=== PATIENT | female | born 1995 | race Caucasian/White ===

== ENCOUNTER 2024-03-05 19:08 | Observation (INO) | payer MEDICAID, SELFPAY ==
[2024-03-05 19:08] VITALS: BMI 21.4
[2024-03-05 19:46] VITALS: BP 115/71; PULSE 87; RESP 16; TEMP 36.8; O2SAT 100
[2024-03-05 19:46] LABS: Add Urine Microscopic? YES; Appearance Urine Cloudy (Clear); Bacteria Urine 2+ /hpf; Bilirubin Urine Negative (Negative); Blood Urine Negative (Negative); Color Urine Yellow (Yellow); Glucose Urine UA Negative (Negative); Ketones Urine 4+ mg/dL (Negative); Leukocyte Esterase Ur Negative LEU/UL (Negative); Nitrate Urine Negative (Negative); Protein Urine 1+ mg/dL (Negative); RBC Urine 0-2 /hpf (0-2); Specific Grav Ur 1.027 (1.001-1.035); Squamous Epithelial Cell Urine Moderate /hpf (Few); WBC Urine 0-5 /hpf (0-3); pH Urine 5.5 (5.0-9.0)
--- NOTE | 2024-03-05 20:00 | PC.NURSE ---
Spoke with Dr Giron over the phone. Reported patient came in with a chief complaint of nausea and vomiting for the last 3 days, that has been worse today. Reported patient UA results. New orders for 1L bolus of D5LR, 4mg Zofran, CBC, and CMP. OK to dc when patient has improved.
[2024-03-05] MEDS: DEXTROSE 5%/LACTATED RINGERS 1,000 ML 999 ML IV CONT (20:30)
[2024-03-05] MEDS: ONDANSETRON INJ 4 MG/2 ML VIAL IV PUSH (20:35)
[2024-03-05 20:51] LABS: Basophils Percent Auto 0.3 % (0.2-1.2); Eosinophils Percent Auto 0.2 % (0-4.4); Hematocrit 35.7 % (37.0-47.0); Hemoglobin 12.7 g/dL (12.0-15.0); Immature Granulocyte Absolute 0.03 K/mm3 (0.00-0.031); Immature Granulocyte Percent A 0.3 % (0-0.5); Lymphocytes Absolute Auto 1.32 K/mm3 (0.9-3.2); Lymphocytes Percent Auto 15.3 % (18.3-44.2); Mean Corpuscular HGB Conc 35.6 g/dl (32-36); Mean Corpuscular Hemoglobin 30.9 pg (26-34); Mean Corpuscular Volume 86.9 fl (80-100); Monocytes Absolute Auto 0.3 K/mm3 (0.1-0.6); Monocytes Percent Auto 3.9 % (2.6-8.5); Neutrophils Absolute Auto 6.9 K/mm3 (1.3-6.7); Platelet Count Result 241 k/mm3 (150-375); Red Blood Count 4.11 M/mm3 (4.2-5.4); Red Cell Distribution Width 12.3 % (11.5-14.5); White Blood Count 8.7 K/mm3 (4.5-10.0)
[2024-03-05 20:54] LABS: Alanine Aminotransferase 12 U/L (6-35); Albumin Level 4.8 g/dL (3.5-5.1); Alkaline Phosphatase 86 U/L (38-126); Anion Gap 16 mmol/L (4-12); Aspartate Amino Transferase 25 U/L (14-36); Bilirubin,Total 2.1 mg/dL (0.2-1.3); Blood Urea Nitrogen 8 mg/dL (7-17); Calcium 9.3 mg/dL (8.4-10.2); Carbon Dioxide 17 mmol/L (22-30); Chloride 102 mmol/L (98-107); Estimated Glomerular Filt Rate > 60; Glucose 73 mg/dL (65-110); Sodium 135 mmol/L (137-145)
--- NOTE | 2024-03-05 21:23 | OBADM ---
This patient, Mary Carmen Simpson, admitted to the OB room [facility] for observation. Patient/family oriented to hospital policies and general routines including ID bracelet, bed and alarms, visiting hours, pain management, procedures, bathroom and other care routines, personal items, smoking policy, room service/diet, and visiting hours. Patient/Family are encouraged to report perceived risks to care and to ask questions if they do not understand what they are told or what they should do.
--- NOTE | 2024-03-26 21:41 | PM.OBTRLD ---
OB - Triage/Final Diagnosis Visit Information Comments/Additional reasons for admission: I have assessed the risk for this patient, Mary Carmen Simpson, and determined that she would benefit from observation care. Evaluation Laboratory results: Laboratory Tests 03/05/24 03/05/24 19:22 20:29 WBC 8.7 RBC 4.11 L Hgb 12.7 Hct 35.7 L MCV 86.9 MCH 30.9 MCHC 35.6 RDW 12.3 Plt Count 241 MPV 10.0 Immature Gran % (Auto) 0.3 Neut % (Auto) 80.0 H Lymph % (Auto) 15.3 L [place] % (Auto) 3.9 Eos % (Auto) 0.2 Baso % (Auto) 0.3 Lymph # (Auto) 1.32 [place] # (Auto) 0.3 Eos # (Auto) 0.0 Baso # (Auto) 0.0 Abs Immat Gran (auto) 0.03 Absolute Neuts (auto) 6.9 H Absolute Nucleated RBC 0.000 Nucleated RBC % 0.0 Sodium 135 L Potassium 4.0 Chloride 102 Carbon Dioxide 17 L Anion Gap 16 H BUN 8 Creatinine 0.50 L Estim Creat Clear Calc Not Reportable Estimated GFR > 60 Glucose 73 Calcium 9.3 Total Bilirubin 2.1 H AST 25 ALT 12 Alkaline Phosphatase 86 Total Protein 9.0 H Albumin 4.8 Urine Color Yellow Urine Appearance Cloudy H Urine pH 5.5 Ur Specific [place] 1.027 Urine Protein 1+ H Urine Glucose (UA) Negative Urine Ketones 4+ H Ur Blood (Man) Negative Urine Nitrate Negative Urine Bilirubin Negative Urine Urobilinogen 1.0 Leukocyte Esterase Rfl Negative Urine RBC 0-2 Urine WBC 0-5 Ur Squamous Epith Cells Moderate Urine Bacteria 2+ H Urine Casts 3-5 Final Diagnosis (1) Nausea and vomiting: Code(s): R11.2 - Nausea with vomiting, unspecified Status: Acute
== END 2024-03-05 21:40 | disposition home or self-care (01) ==
PROVIDERS: Admitting Provider Obstetrics & Gynecology; Visit Provider Obstetrics & Gynecology
DX: O21.9 Vomiting of pregnancy, unspecified (principal); Z3A.00 Weeks of gestation of pregnancy not specified
CPT/HCPCS: 36415; 80053; 81001; 85025; 96374; G0378; G0379; J2405; J7121

== ENCOUNTER 2024-09-24 22:19 | Inpatient (IN) | payer OTHER, SELFPAY ==
--- OUTSIDE RECORDS SUMMARY | 2024-09-24 22:29 | XMS_ITS | Clinical Summary ---
Author Organization [facility] Address [facility] [place] [address] Phone [email or web address] Care Team Providers Care Print Finisher Name Role Phone Unavailable Primary Care Provider Unavailabl e Allergies No known active allergies Medications amphetamine-dext roamphetamine XR (ADDERALL XR) 5 MG 24 hr capsule Take 10 mg by mouth 1 (one) time each day. 2 Active naproxen (Naprosyn) 500 MG tabletIndication s:Chronic migraine without aura without status migrainosus, not intractable Take 1 tablet (500 mg total) by mouth 2 (two) times a day if needed for mild pain, moderate pain or headaches. 60 tablet 2 Active SUMAtriptan (IMITREX) 100 MG tabletIndication s:Migraine without aura and with status migrainosus, not intractable Take 1 tablet (100 mg total) by mouth 1 (one) time if needed for migraine for up to 1 dose. 9 tablet 2 Active Active Problems Problem Noted Date Diagnosed Date Chronic migraine without aur a without status migrainosus, not intractable 08/08/2019 Overview (08/08/2019): Evaluated by neurology in past Migraine and tension type headaches Experiencing migraines about once per month Continue imitrex and flexeril prn Assessment & Plan (04/21/2022 3:15 PM EST): Discussed other treatment options. Pt is finding imitrex to be effective and will continue as needed, but will add naproxen 500mg to take if needed first and if ineffective then can take imitrex as ordered. Advised to take naproxen with food. Referral to PT as well. Encouraged to resume psychotherapy for stress management. Advised to be mindful of good posture when seated at desk. Assessment & Plan (11/21/2020 12:20 PM EDT): Headaches are improving with lifestyle modifications. Continue current treatment regimen. Imitrex refilled. ADHD 06/07/2012 Overview (11/21/2020): Last Assessment & Plan: - Will continue patient on Strattera at current dose that she has been taking at home, 40mg daily - Patient was instructed to follow up again in 2-3 months or to return sooner if any new or concerning side effects/symptoms arise Last Assessment & Plan: - Will continue patient on Strattera at current dose that she has been taking at home, 40mg daily - Patient was instructed to follow up again in 2-3 months or to return sooner if any new or concerning side effects/symptoms arise Assessment & Plan (11/21/2020 12:22 PM EDT): Psychological condition is worsening. Regular aerobic exercise. Referral to psychological counseling. Referral to psychiatry. for treatment recommendations - straterra and adderall not tolerated well in past. Psychological condition will be reassessed at the next regular appointment for annual physical next month. Resolved Problems Problem Noted Date Diagnosed Date Resolved Date Elevated blood pressure read ing without diagnosis of hypertension 08/08/2019 12/19/2020 Corneal abrasion, left 05/12/201611/21 Overview (11/21/2020): Last Assessment & Plan: Resolving Artifical tears Last Assessment & Plan: Resolving Artifical tears Immunizations Name Administration Dates Next Due COVID-19 (Pfizer [place] 12 yrs+) (CVX-208) 021,09/18/2020 Hep B (ENGERIX B RECOMBIVAX) Adol/Ped (CVX-08) 01/17/1996,1995,1995 Family History Medical History Relation Name Comments Diabetes Maternal Grandfather jack Xavier Cancer Maternal Grandmother Yokasta xavier Diabetes Maternal Grandmother Yokasta xavier Relation Name Status Comments Maternal Grandfather jack Xavier Maternal Grandmother Yokasta xavier breast CA Social History Tobacco Use Types Packs/Day Years Used Date Smoking Tobacco: Never Smokeless Tobacco: Never Tobacco Cessation:Counseling Given: Not Answered Alcohol Use Standard Drinks/Week Comments Yes 2 (1 standard drink = 0.6 oz pur e alcohol) 1-2 glasses per week Intimate Partner Violence Answer Date R ecorded Insults You Not on file 09/20/2020 Threatens You Not on file 09/20/2020 Screams at You Not on file 09/20/2020 Physically Hurt Not on file 09/20/2020 Intimate Partner Violence Score Not on file 09/20/2020 Alcohol Use Answer Date Recorded Alcohol Use Status Yes 09/20/2020 Depression Answer Date Recorded PHQ Total Score 0 04/21/2022 Stress Answer Date Recorded Stress in your Life 0 07/15/2020 Dealing with Stress Not on file 07/15/2020 Comments No Sex and Gender Information Value Date Recorded Sex Assigned at Not on file Legal Sex Female 12:27 PM CDT Gender Identity Female 03/20/2019 11:01 AM CDT Sexual Orientation Straight 03/20/2019 11 :01 AM CDT Last Filed Vital Signs Vital Sign Reading Time Taken Comments Blood Pressure 115/78 07/07/2022 12:30 PM EST Pulse 83 07/07/2022 12:30 PM EST Temperature 36.9 C (98.5 F) 07/07/2022 12:30 PM EST Respiratory Rate 17 12/19/2020 3:41 PM EDT Oxygen Saturation 100% 07/07/2022 12:30 PM EST Inhaled Oxygen Concentration - - Weight 54.4 kg (120 lb) 07/07/2022 12:30 PM EST Height 160 cm (5' 3 ) 07/07/2022 12:30 PM EST Body Mass Index 21.26 07/07/2022 12:30 PM EST Plan of Treatment Health Maintenance Due Date Last Done Comments Tetanus Diphtheria and Pertussis Immunization (1 - Tdap) 2014 Tetanus (Tdap or Td) Immunization 06/20/2017 06/20/2007 Dental Cleaning/Exam 03/07/2023 03/07/2022, 04/07/2020 Covid-19 Immunization ( season) 2024 10/09/2020, 09/18/2020 Influenza Immunization (Season Ended) 2025 Cervical Cancer Screening 07/07/20272022, 07/07/2022, 08/07/2018 Hepatitis B Immunization Completed 996, 1995, 1995 HIB Immunization Aged Out No longer e ligible based on patient's age to complete this topic HPV Immunization Discontinued Hepatitis A Immunization Aged Out No longer eligible based on patient's age to complete this topic Pneumococcal: Ped (0 to 5 Yrs) and At-Risk Member (6 to 64 Yrs) Aged Out No longer eligible b ased on patient's age to complete this topic Polio Immunization Aged Out No longer eligible based on patient's age to complete this topic Varicella Immunization Aged Out No lo nger eligible based on patient's age to complete this topic Procedures Procedure Name Priority Date/Time Associated Diagnosis Comments PAP [id number] GUIDELINE FOR CERVICAL CANCER (APTIMA ) AND STDS - [facility] Routine 07/07/2022 12:59 PM EST Encounter for gynecological examination (general) (routine) without abnormal findings Pap smear for cervical cancer screening from Last 3 Months or Most Recently Relevant to Health Maintenance Results * Pap [id number] Guideline for Cervical Cancer (Aptima??) and STDs - [facility] ([id number]) (07/07/2022 12:59 PM EST) Age Gdln ACOG Testing 25-29 [facility] 1 Swab (Cervix) 07/07/2022 12: 59 PM EST 07/08/2022 1:00 AM EST Comment:Cervix Delay release Narrative [facility] - 07/10/2022 9:06 PM EST Performed at: [facility] [id number] Driver Trainee: Zeinab Arellano MD, Phone: [phone] Specimen Comment: [id number] Specimen Comment: No. of containers..01 ThinPrep Vial Hortensia Arredondo NP LAB CYTOLOGY ORDERABLES Final R esult [facility] 1 from Last 3 Months or Most Recently Relevant to Health Maintenance Insurance [facility] COPAY 5
--- OUTSIDE RECORDS SUMMARY | 2024-09-24 22:29 | XMS_ITS | Data Portability ---
Author Organization [facility] [place] Address [address] [place] [address] Assessment Encounter Date Assessment Date Assessment LastModified by Organization Details LastModified Time 08/23/2024 08/23/2024 Patient is ___weeks . Discussed plan. Not available 08/23/2024 18:19:10 09/06/2024 09/06/2024 Patient is ___weeks . Discussed plan. Not available 09/06/2024 17:39:18 09/14/2024 09/14/2024 Patient is ___weeks . Discussed plan. Not available 09/14/2024 16:09:13 09/20/2024 09/20/2024 Patient is ___weeks . Discussed plan. Not available 09/20/2024 17:10:02 Plan of Treatment Reminders Order Date Submit Date Provider Last Modified By Organization Details Last Modified Time Details Appointments OB ROUTINE 2024 02:15P Mloina GIRON MD Not available Not available Not available Lab None recorded . Referral None recorded . Procedures None recorded . Surgeries None recorded . Imaging non-stre ss test 2024 025 [email or web address] [place], [address], [address], [place], [address], 09/14/2024 17:34:02 Medication Orders None recorded . Patient TargetsNo targets recorded. Patient InstructionsNo instructions recorded. Reason for Referral None Reported. Results Created Date Observation Date Name Description Value Unit Range Abnormal Flag Note LastModifiedBy Organization Detail LastModifiedTime 09/07/19 25 09/06/2024 CULTU RE: GROUP B STREP SCREE N, REFLE X SUSCE PTIBI LITY result report SEE RESULT S BELOW Test: Cultu re: Group B Strep , Refle x Susce ptibi lity ([facility]/ [facility] ) Speci men Sourc e: Vagin a/Rec gregoria Speci men Type: Vagin al/Re ctal Speci men Date: 1747 Resul t Date: 1411 Resul t Statu s: Final resul t Abnor mal: No Resul ting Lab: [facility] [address] [facility] [address] Tel: CULTU RE ----- ----- ----- --- No Group B strep isola isak at 2 days (jennifer ctive broth enhan cemen t) Not Available [facility] (Lab) [address] [facility] [address], [place], [address], 09/09/2024 15:18:35 08/10/19 25 08/09/2024 US, obste tric, follo w-up No observ ation record ed. [email or web address] [place] [address], [place], [address], 08/09/2024 18:44:01 08/10/19 25 08/09/2024 US, obste tric, follo w-up No observ ation record ed. [email or web address] [address], [place], [address], 08/14/2024 23:04:20 09/15/19 25 09/14/2024 non-s tress test No observ ation record ed. [email or web address] [place] [address], [place], [address], 09/14/2024 17:31:01 Result Notes None recorded. Problems Name Problem SNOMED Code Status Onset Date Resolution Date Notes Provider Name and Address Organization Details Recorded Time 35083038 Active 2023 Miguelina Yepez null, [facility] 4 17:15:12 Migraine 87564704 Active sumatript an Edmundo Giron MD [address], [place], [address], [facility] 4 17:43:58 Acid reflux 631427775 Active protonix Edmundo Giron MD [address], [place], [address], [facility] 5 11:31:26 Problem Notes None recorded. Procedures Surgical History Date Name Laterality Status Provider Name and Address Organization Details Recorded Time 3 Date of Last Pap [facility] 16:16:18 tympanotomy completed Miguelina Abner [facility] 02/28/2024 16:21:24 extraction of wisdom tooth completed [facility] 02/28/2024 16:21:37 Imaging Results Imaging Date Name Status LastModified by Organiz ation Details LastModified Time 08/09/2024 US, obstetric, follow-up completed [email or web address] [place] [address], [place], [address], 08/09/2024 18:44:01 08/09/2024 US, obstetric, follow-up completed [email or web address] [address], [place], [address], 08/14/2024 23:04:20 09/14/2024 non-stress test completed [email or web address] [place] [address], [place], [address], 09/14/2024 17:31:01 Procedure Notes None recorded. Medical Equipment None Reported. Allergies No known drug allergies Medications Name Sig Start Date Stop Date Status Note LastModified by Organization Details LastModified Time ondansetron HCl 4 mg tablet TAKE 1 TABLET BY MOUTH EVERY 4 TO 6 HOURS NEEDED 08/23 completed Not Available Not Available Not Available sumatriptan 50 mg tablet TAKE 1 TABLET BY MOUTH EVERY 2 HOURS NEEDED active Not Available Not Available No t Available triamcinolo ne acetonide 0.1 % topical cream APPLY A THIN LAYER TO THE AFFECTED AREA(S) BY TOPICAL ROUTE 2 TIMES PER DAY active Not Available Not Available No t Available pantoprazol e 20 mg tablet,jass yed release TAKE 2 TABLETS BY MOUTH EVERY DAY active Not Available Not Available No t Available active Not Available Not Avai lable Not Available Vitals Date Recorded Body weight Systolic blood pressure Diastolic blood pressure Provider Name and Address Organization Details Last Updated DateTime 08/23/2024 50667.1486 8 g 126 mm[Hg] 80 mm[Hg] Miguelina [facility] 08/23/2024 18:20:06 Date Recorded Body weight Body mass index (BMI) Body height Systolic blood pressure Diastolic blood pressure Provider Name and Address Organization Details Last Updated DateTime 09/06/2024 10461.85 8322 g 30.2 kg/m2 160.02 cm 135 mm[Hg] 87 mm[Hg] Marginya Cainey [facility] 17:39:43 Date Recorded Body height Body mass index (BMI) Body weight Systolic blood pressure Diastolic blood pressure Provider Name and Address Organization Details Last Updated DateTime 09/14/2024 160.02 cm 30.5 kg/m2 93382.89 g 125 mm[Hg] 84 mm[Hg] Miguelina [facility] 16:16:56 Date Recorded Body height Body mass index (BMI) Body weight Systolic blood pressure Diastolic blood pressure Provider Name and Address Organization Details Last Updated DateTime 09/14/2024 160.02 cm 30.5 kg/m2 86573.89 g 125 mm[Hg] 84 mm[Hg] TERA Aranda [facility] 17:28:59 Date Recorded Body weight Systolic blood pressure Diastolic blood pressure Provider Name and Address Organization Details Last Updated DateTime 09/20/2024 66203.2571 2 g 127 mm[Hg] 83 mm[Hg] Miguelina Yepez [facility] 09/20/2024 17:10:32 Social History Question Answer Notes LastModified by Organizat ion Details LastModified Time Tobacco Smoking Status Never Smoker Miguelina Yepez null, [facility] 02/28/2024 16:19:03 What Is Your Level Of Alcohol Consumption? None Not Since Information not available 02/28/2024 Are You Blind Or Do You Have Difficulty Seeing? No Information not available 02/28/2024 What Is Your Level Of Caffeine Consumption? Moderate Information not available 02/28/2024 In The 14 Days Before Symptom Onset, Have You Had Close Contact With A Laboratory-confir med COVID-19 While That Case Was Ill? No Information not available 02/28/2024 In The 14 Days Before Symptom Onset, Have You Had Close Contact With A Person Who Is Under Investigation For COVID-19 While That Person Was Ill? No Information not available 02/28/2024 Have You Been To An Area Known To Be High Risk For COVID-19? No Information not available 02/28/2024 Are You Currently Employed? No Information not available 02/28/2024 Are You Deaf Or Do You Have Serious Difficulty Hearing? No Information not available 02/28/2024 What Type Of Diet Are You Following? REGULAR Information not available 02/28/2024 What Is The Highest Grade Or Level Of School You Have Completed Or The Highest Degree You Have Received? [id number] Information not available 02/28/2024 Are There Any Guns Present In Your Home? Yes Information not available 02/28/2024 Do You Use Your Seat Belt Or Car Seat Routinely? Yes Information not available 02/28/2024 Are You Sexually Active? Yes Information not available 02/28/2024 Do You Have Smoke And Carbon Monoxide Detectors In Your Home? Yes Information not available 02/28/2024 Do You Feel Stressed (tense, Restless, Nervous, Or Anxious, Or Unable To Sleep At Night)? [id number] Information not available 02/28/2024 Do You Use Any Illicit Or Recreational Drugs? No Information not available 02/28/2024 Do You Use Sunscreen Routinely? No Information not available 02/28/2024 Sex: Female Functional Status Question Answer Note LastModified by Organizat ion Details LastModified Time Do you have difficulty walking or climbing stairs? No Information not available 02/28/2024 Are you able to walk? YESWOREST Information not available 02/28/2024 Are you able to care for yourself? Yes Information not available 02/28/2024 Do you have difficulty dressing or bathing? No Information not available 02/28/2024 What is your exercise level? Occasional Information not available 02/28/2024 Mental Status None recorded. Family History Relationship Description Onset Age of this Age Resolved Age Notes LastModified by Organization Details LastModified Time Maternal Grandmother Malignant tumor of breast Not available 2023 16:18:21 Maternal Grandmother Diabetes mellitus Not available 2023 16:18:35 Medical History Condition Response Allergies (Food, seasonal, environmental ) N Other N Drug/Latex Allergies/Reactions N Breast Cancer N Blood Transfusion N Lung Disease N Dermatologic Disorders N Defects or Inherited Disease N Breast Problem N Gestational Diabetes N Hematologic disorders N Anesthesia Complications N History of STI N Deep Vein Thrombosis N Polycystic ovary syndrome N Anxiety Disorder N Autoimmune disease N Arthritis N Polyps N Infertility N History of abnormal pap N Acid Reflux (GERD) N Cancer N Varicosities N Stroke N Neurologic/Epilepsy N Endometriosis N High Cholesterol N Headaches Y Fibromyalgia N Kidney Disease N Heart Problems N Thyroid Problems N Kidney or Bladder Problems N GI Problems N Eating Disorder N Anemia N Art (IVF or FET) N Psychiatric Illness N Ovarian Cancer N Diabetes N Pulmonary (TB, Asthma) N Hepatitis/Liver Disease N No Past Medical History N Eczema N Urinary Tract Infection N Abuse/Domestic Violence N Asthma N Trauma/Violence N Depression/ depression N Heart Disease N Pre-Eclampsia N Hypertension N Osteoporosis N Thrombophilias N Gynecological History Statement/Question Response Abnormal Pap N Flow Moderate Date of LMP 12/31/2023 On BCP's at Conception? N Was last menstrual period normal Y STIs/STDs N Duration of Flow (days) 4 Current Control Method Age at First Child 29 Are cycles usually normal Y Frequency of Cycle (Q days) 28 Sexually Active? Y Menses Monthly Y Age of first menstrual cycle 14 Date of Last Pap Smear 12/05/2022 Sexual Problems? N LMP Definite Obstetrics History GPAL:G 1 P 0 0 0 0 Past Encounters Encounter ID Performer Location Encounter Start Date Encounter Closed Date Diagnosis/Indication Diagnosis SNOMED-CT Code Diagnosis ICD10 Code Diagnosis Note [id number] Reyna Newberry [place] [address] [address] 02/28/2024 15:19:01 02/28/2024 15:57:34 [id number] Edmundo Giron MD [place] [address],[place] [address] 02/28/2024 15:41:45 02/28/2024 16:59:41 Amenorrhea 84483384 N91.2 this patient is a 29-year-ol d female who presents for amenorrhea . She is a positive test. Ultrasound revealed a 1st trimester gestation. Patient has no complaints . We talked about early care. Talked about genetic screening. We talked about her ultrasound results. We talked about the 12 week ultrasound that has genetic screening components . She was given recommenda tions on exercise, diet, over-the-c ounter medication s. We reviewed her obstetric history. We reviewed her medical history. We reviewed her social history. She will begin routine care at her next visit. [id number] [facility] [address],[place] [address] 03/30/2024 16:08:52 03/31/2024 04:42:53 screening 125788322 Z36.82 Z3A.13 [id number] Edmundo Giron MD [place] [address],[place] [address] 03/30/2024 16:09:20 03/31/2024 04:46:35 Migraine 95506041 G43.909 Routine an tenatal care 315250630 Z34.91 [id number] Nicole [facility] [address],[place] [address] 05/16/2024 15:52:03 05/16/2024 16:54:24 screening for malformation 333219552 Z36.3 Z3A.20 [id number] Edmundo Giron MD [place] [address] [address] 05/16/2024 15:53:41 05/16/2024 17:28:43 Contact dermatitis 88279586 L25.9 Routine an tenatal care 482594555 Z34.91 [id number] [facility] [address],[place] [address] 06/14/2024 15:19:40 06/14/2024 15:55:20 Suspected abnormality affecting management of mother 4782850665 1648713 O35.8XX0 Z3A.24 [id number] Edmundo Giron MD [place] [address],[place] [address] 06/14/2024 15:19:56 06/14/2024 16:37:36 Routine care 914498628 Z34.91 [id number] Edmundo Giron MD [place] [address],[place] [address] 07/13/2024 10:43:30 07/13/2024 11:43:20 Gastroesophageal reflux disease 015071578 K21.00 [id number] Edmundo Giron MD [place] [address],[place] [address] 07/24/2024 16:15:55 07/24/2024 17:02:04 Routine care 916053545 Z34.91 [id number] [facility] [address],[place] [address] 08/09/2024 15:50:00 08/09/2024 16:29:49 Uterine size for dates discrepancy 069261277 O26.843 Z3A.32 [id number] Edmundo Giron MD [place] [address],[place] [address] 08/09/2024 15:50:18 08/09/2024 17:36:58 Routine care 275808191 Z34.91 [id number] Edmundo Giron MD [place] [address],[place] [address] 08/23/2024 17:34:55 08/24/2024 08:26:37 Routine care 437547684 Z34.91 [id number] Edmundo Giron MD [place] [address] [address] 09/06/2024 17:28:44 09/06/2024 18:10:32 Routine care 287587029 Z34.91 [id number] Edmundo Giron MD [place] [address] [address] 09/14/2024 15:26:55 09/14/2024 16:51:03 Routine care 178028540 Z34.91 [id number] TERA [facility] [address],[place] [address] 09/14/2024 16:50:16 09/14/2024 17:34:02 Reduced movement 744820280 O36.8199 [id number] Edmundo Giron MD [place] [address],[place] [address] 09/20/2024 16:32:34 09/21/2024 00:51:44 Routine care 059735170 Z34.91 Health Concerns Section Related Observation LastModified by Organization Detai ls LastModified Time None Recorded Concern Status LastModified by Organization Details LastModified Time None Recorded Advance Directives Directive None Recorded Payers Encounter Date Sequence Insurance Name Policy Number Policy Fagan Covered Member ID Fagan Member ID Guarantor Name 08/23/2024 1 [facility] (MEDICAID HMO) [id number] [facility] [id number] [facility] 09/06/2024 1 [facility] (MEDICAID HMO) [id number] [facility] [id number] [facility] 09/14/2024 1 [facility] (MEDICAID HMO) [id number] [facility] [id number] [facility] 09/14/2024 1 [facility] (MEDICAID O) [id number] Mary Carmen Simpson [id number] Mary Carmen Simpson 09/20/2024 1 [facility] (MEDICAID O) [id number] Mary Carmen Simpson [id number] Mary Carmen Simpson OBGyn Episode Ob Episode Information Episode Created Date Number of Fetuses Patient Bloodtype Patient rh Status Prepregnancy Weight lbs Domestic Partner Domestic Partner Phone Father Name Social Worker School Status 03/30/20 1 O Positive Cruz Ras ss OPEN Fetus Data First Name Last Name Admitted to NICU Weight (g) Sex Living Outcome Pediatric Complications Fetus ID Race Codes Race Delivery Type [id number] Problems Problem Notes Problem Name Start Date End Date Resolution Snomed Code Not e Migraine 71054402 sumatripta n Acid reflux 266798954 protonix Chun Calculation Initial Chun Date Initial Exam Date Initial Exam Provider Initial Ultrasound Date Last Menstrual Period Date Ultra Sound Weeks Gestation 03/30/2024 02/28/2024 12/31/2023 9 Eighteen To Twenty Week Chun Update Ultra Sound Date Fundal Height At Umbil Quickening Date Ultra Sound Latest Weeks Gestation Final Chun Confirmed By Final Chun Confirmed Date Final Chun Date Ultra Sound Latest Days Gestation 0 10/03/19 25 0 Pre-los Flowsheet Flowsheet Date 03/30/2024 Cai Score Blood Edema Fundus Height Fundus Units Glucose Ketones Leukocytes Nitrite Labor Signs Protein Cervic Dilation Cervic Effacement Cervic Station Type Weight in lbs Pre/Post Dialysis Refused BP Diastolic BP Location Tested BP Systolic BP Type Fetus Heart Rate Present Fetus Movement Comments Flowsheet Date 03/30/2024 Cai Score Blood Edema Fundus Height Fundus Units Glucose Ketones Leukocytes Nitrite Labor Signs Protein Cervic Dilation Cervic Effacement Cervic Station Type Weight in lbs Pre/Post Dialysis Refused Weight 132.267183383771 BP Diastolic BP Location Tested BP Systolic BP Type 83 L arm 123 sitting Fetus Heart Rate Present A 150 Fetus Movement A No Comments this patient is a 29-year-ol d primparous female at 12 weeks' gestation who presents for initial care. She has a history of term vaginal births. Her medical, surgical, obstetric history is unremarkable. She is vaccinated. She was given precautions recommendations for . We talked about vaccines in . Talked about care in detail. She is having genetic testing. She had a normal 12 week ultrasound. To begin routine care. Flowsheet Date 05/16/2024 Cai Score Blood Edema Fundus Height Fundus Units Glucose Ketones Leukocytes Nitrite Labor Signs Protein Cervic Dilation Cervic Effacement Cervic Station Type Weight in lbs Pre/Post Dialysis Refused BP Diastolic BP Location Tested BP Systolic BP Type Fetus Heart Rate Present Fetus Movement Comments Flowsheet Date 05/16/2024 Cai Score Blood Edema Fundus Height Fundus Units Glucose Ketones Leukocytes Nitrite Labor Signs Protein Cervic Dilation Cervic Effacement Cervic Station Type Weight in lbs Pre/Post Dialysis Refused 141.174925582311 BP Diastolic BP Location Tested BP Systolic BP Type 87 L arm 120 sitting Fetus Heart Rate Present Fetus Movement A Yes Comments no complaints, no problems, routine care, no contractions, no vaginal bleeding, no loss of fluid, no cramping resolution of synechiae and no placenta circumvallate Flowsheet Date 06/14/2024 Cai Score Blood Edema Fundus Height Fundus Units Glucose Ketones Leukocytes Nitrite Labor Signs Protein Cervic Dilation Cervic Effacement Cervic Station Type Weight in lbs Pre/Post Dialysis Refused BP Diastolic BP Location Tested BP Systolic BP Type Fetus Heart Rate Present Fetus Movement Comments Flowsheet Date 06/14/2024 Cai Score Blood Edema Fundus Height Fundus Units Glucose Ketones Leukocytes Nitrite Labor Signs Protein Cervic Dilation Cervic Effacement Cervic Station neg none Type Weight in lbs Pre/Post Dialysis Refused Weight 149.75458246322 BP Diastolic BP Location Tested BP Systolic BP Type 82 L arm 135 sitting Fetus Heart Rate Present A 145 Fetus Movement A Yes Comments no complaints, no problems, routine care, no contractions, no vaginal bleeding, no loss of fluid, no crampingresolution of LETTER[employer] SETTER Flowsheet Date 07/13/2024 Cai Score Blood Edema Fundus Height Fundus Units Glucose Ketones Leukocytes Nitrite Labor Signs Protein Cervic Dilation Cervic Effacement Cervic Station Type Weight in lbs Pre/Post Dialysis Refused 156.589377550896 BP Diastolic BP Location Tested BP Systolic BP Type 79 L arm 118 sitting Fetus Heart Rate Present A 148 Fetus Movement A Yes Comments complains of reflex, reflux treated with Protonix -, no other problems, routine care, no contractions, no vaginal bleeding, no loss of fluid, no cramping Flowsheet Date 07/24/2024 Cai Score Blood Edema Fundus Height Fundus Units Glucose Ketones Leukocytes Nitrite Labor Signs Protein Cervic Dilation Cervic Effacement Cervic Station 33 cm Type Weight in lbs Pre/Post Dialysis Refused 158.160563901216 BP Diastolic BP Location Tested BP Systolic BP Type 86 L arm 125 sitting Fetus Heart Rate Present A 148 Present Fetus Movement A Yes Comments no complaints, no problems, routine care, no contractions, no vaginal bleeding, no loss of fluid, no cramping. S>D - US Flowsheet Date 08/09/2024 Cai Score Blood Edema Fundus Height Fundus Units Glucose Ketones Leukocytes Nitrite Labor Signs Protein Cervic Dilation Cervic Effacement Cervic Station Type Weight in lbs Pre/Post Dialysis Refused BP Diastolic BP Location Tested BP Systolic BP Type Fetus Heart Rate Present Fetus Movement Comments Flowsheet Date 08/09/2024 Cai Score Blood Edema Fundus Height Fundus Units Glucose Ketones Leukocytes Nitrite Labor Signs Protein Cervic Dilation Cervic Effacement Cervic Station Type Weight in lbs Pre/Post Dialysis Refused 164.55473900718 BP Diastolic BP Location Tested BP Systolic BP Type 83 L arm 126 sitting Fetus Heart Rate Present A 145 Fetus Movement Comments no complaints, no problems, routine care, no contractions, no vaginal bleeding, no loss of fluid, no cramping Flowsheet Date 08/23/2024 Cai Score Blood Edema Fundus Height Fundus Units Glucose Ketones Leukocytes Nitrite Labor Signs Protein Cervic Dilation Cervic Effacement Cervic Station 34 cm Type Weight in lbs Pre/Post Dialysis Refused 164.87568006602 BP Diastolic BP Location Tested BP Systolic BP Type 80 L arm 126 sitting Fetus Heart Rate Present A 146 Present Fetus Movement A Yes Comments no complaints, no problems, routine care, no contractions, no vaginal bleeding, no loss of fluid, no cramping Flowsheet Date 09/06/2024 Cai Score Blood Edema Fundus Height Fundus Units Glucose Ketones Leukocytes Nitrite Labor Signs Protein Cervic Dilation Cervic Effacement Cervic Station 1cm 30% -3 Type Weight in lbs Pre/Post Dialysis Refused 170.932572033276 BP Diastolic BP Location Tested BP Systolic BP Type 87 L arm 135 sitting Fetus Heart Rate Present A 145 Fetus Movement A Yes Comments no complaints, no problems, routine care, no contractions, no vaginal bleeding, no loss of fluid, no cramping, GBS today Flowsheet Date 09/14/2024 Cai Score Blood Edema Fundus Height Fundus Units Glucose Ketones Leukocytes Nitrite Labor Signs Protein Cervic Dilation Cervic Effacement Cervic Station Type Weight in lbs Pre/Post Dialysis Refused Weight 172.127070719396 BP Diastolic BP Location Tested BP Systolic BP Type 84 L arm 125 sitting Fetus Heart Rate Present A 146 Present Fetus Movement A Yes Comments no complaints, no problems, routine care, no contractions, no vaginal bleeding, no loss of fluid, no cramping decreased movement-NST Flowsheet Date 09/14/2024 Cai Score Blood Edema Fundus Height Fundus Units Glucose Ketones Leukocytes Nitrite Labor Signs Protein Cervic Dilation Cervic Effacement Cervic Station Type Weight in lbs Pre/Post Dialysis Refused Weight 172.406764530555 BP Diastolic BP Location Tested BP Systolic BP Type 84 L arm 125 sitting Fetus Heart Rate Present Fetus Movement Comments Flowsheet Date 09/20/2024 Cai Score Blood Edema Fundus Height Fundus Units Glucose Ketones Leukocytes Nitrite Labor Signs Protein Cervic Dilation Cervic Effacement Cervic Station 36 cm 2+ 2cm Type Weight in lbs Pre/Post Dialysis Refused 176.193823526885 BP Diastolic BP Location Tested BP Systolic BP Type 83 L arm 127 sitting Fetus Heart Rate Present A 138 Present Fetus Movement A Yes Comments Menstrual History Last Menstrual Date Menses Monthly On Bcp Conception Prior Menses Frequency Hcg Plus Date Menarche Onset Age 0712/31/2023 true Delivery Information Delivery Date Delivery Type Labor Anesthesia Weeks Gestation Incision Type Labor Labor Length Hrs Delivered By Post Complications Tubal Sterilization Discharge Date Comments Discharge Information Feeding Method Contraceptive Method Maternal HG B and HCT Levels
[2024-09-24 22:39] VITALS: BP 133/85; PULSE 99
[2024-09-24 22:45] VITALS: BP 125/80; PULSE 95
[2024-09-24 23:00] VITALS: BP 124/78; PULSE 94; BMI 31.2
[2024-09-24 23:15] VITALS: BP 125/79; PULSE 92
[2024-09-24 23:30] VITALS: BP 123/78; PULSE 90
[2024-09-25] VITALS (212 sets, daily range): BP systolic 111–226; BP diastolic 64–196; PULSE 27–147; RESP 18–20; TEMP 36.4–36.8; O2SAT 68–100
--- NOTE | 2024-09-25 03:03 | OBADM ---
This patient, Mary Carmen Simpson, admitted to the OB room Labor/Delivery/Recovery 105 for observation. Patient/family oriented to hospital policies and general routines including ID bracelet, bed and alarms, visiting hours, pain management, procedures, bathroom and other care routines, personal items, smoking policy, room service/diet, and visiting hours. Patient/Family are encouraged to report perceived risks to care and to ask questions if they do not understand what they are told or what they should do.
[2024-09-25 04:00] LABS: Basophils Percent Auto 0.4 % (0.2-1.2); Eosinophils Absolute Auto 0.1 K/mm3 (0-0.3); Eosinophils Percent Auto 0.6 % (0-4.4); Hematocrit 30.2 % (37.0-47.0); Hemoglobin 10.1 g/dL (12.0-15.0); Immature Granulocyte Absolute 0.06 K/mm3 (0.00-0.031); Immature Granulocyte Percent A 0.6 % (0-0.5); Lymphocytes Percent Auto 21.2 % (18.3-44.2); Mean Corpuscular HGB Conc 33.4 g/dl (32-36); Mean Corpuscular Hemoglobin 29.8 pg (26-34); Mean Corpuscular Volume 89.1 fl (80-100); Mean Platelet Volume 11.4 fl (7.4-10.4); Monocytes Absolute Auto 0.5 K/mm3 (0.1-0.6); Monocytes Percent Auto 5.5 % (2.6-8.5); Neutrophils Absolute Auto 7.1 K/mm3 (1.3-6.7); Neutrophils Percent Auto 71.7 % (45.5-73.1); Platelet Count Result 152 k/mm3 (150-375); Red Blood Count 3.39 M/mm3 (4.2-5.4); Red Cell Distribution Width 15.6 % (11.5-14.5); White Blood Count 9.9 K/mm3 (4.5-10.0)
--- NOTE | 2024-09-25 04:00 | LDADM ---
This patient, Mary Carmen Simpson, was admitted to Labor/Delivery/Recovery 105 on 09/25/24 at 03:38. Plans for labor, pain management and were discussed with patient. Patient/family oriented to hospital policies and general routines including ID bracelet, bed and alarms, visiting hours, pain management, procedures, bathroom and other care routines, personal items, smoking policy, room service/diet and guest tray routines, security routines, and visiting hours. Patient/Family are encouraged to report perceived risks to care and to ask questions if they do not understand what they are told or what they should do. See OBIX for further documentation.
[2024-09-25 04:40] LABS: Rubella IgG Antibody 13.8 IU/ML; Syphilis IgG/IgM Antibody Negative (Negative)
[2024-09-25 04:54] LABS: HIV 1/2 Ab P24 Ag Result Negative (Negative)
[2024-09-25 05:02] LABS: Hepatitis B Surface Antigen Negative (Negative)
--- NOTE | 2024-09-25 06:06 | WPDANESEPP ---
Anes - Eval Pre Procedure Procedure: Labor epidural Date/Time: 09/25/24 06:06 Surgeon: Bree Preop Diagnosis: Abdominal pain with contractions Pre Op Diagnosis: Contractions Patient Data Age: 29 Gender: F Height: 1.6 m Weight: 80 kg Last Vital Signs Pulse 94 09/25/24 04:52 BP 132/79 09/25/24 04:52 Pulse Ox 98 09/25/24 06:03 Allergies Allergy/AdvReac Type Severity Reaction Status Date / Time No Known Allergies Allergy Verified 03/05/24 20:41 Home Medications ?Medication ?Instructions ?Recorded ?Confirmed ?Type No Home Medications 03/05/24 03/05/24 History Laboratory Tests 09/25/24 03:50 WBC 9.9 K/mm3 (4.5-10.0) RBC 3.39 L M/mm3 (4.2-5.4) Hgb 10.1 L g/dL (12.0-15.0) Hct 30.2 L % (37.0-47.0) MCV 89.1 fl (80-100) MCH 29.8 pg (26-34) MCHC 33.4 g/dl (32-36) RDW 15.6 H % (11.5-14.5) Plt Count 152 k/mm3 (150-375) MPV 11.4 H fl (7.4-10.4) Immature Gran % (Auto) 0.6 H % (0-0.5) Neut % (Auto) 71.7 % (45.5-73.1) Lymph % (Auto) 21.2 % (18.3-44.2) [place] % (Auto) 5.5 % (2.6-8.5) Eos % (Auto) 0.6 % (0-4.4) Baso % (Auto) 0.4 % (0.2-1.2) Lymph # (Auto) 2.10 K/mm3 (0.9-3.2) [place] # (Auto) 0.5 K/mm3 (0.1-0.6) Eos # (Auto) 0.1 K/mm3 (0-0.3) Baso # (Auto) 0.0 K/mm3 (0.0-0.1) Abs Immat Gran (auto) 0.06 H K/mm3 (0.00-0.031) Absolute Neuts (auto) 7.1 H K/mm3 (1.3-6.7) Absolute Nucleated RBC 0.000 K/mm3 (0.0-0.012) Nucleated RBC % 0.0 % (0.0-0.2) Syphilis IgG/IgM Ab Negative (Negative) Hep Bs Antigen Negative (Negative) HIV 1&2 Ab/P24 Ag 4thGn Negative (Negative) Rubella IgG Antibody 13.8 IU/ML (10 - ) Blood Type O Positive Antibody Screen Negative : gestational age HCG: positive Patient hx anesthesia problems: none Family hx anesthesia problems: none Results Review: All pre-operative results and documents have been reviewed as part of the pre-operative evaluation. FORMERLY [facility], [facility] Past Medical History Medical History Overweight (BMI 25.0-29.9) and not yet delivered Nausea and vomiting Social History Social History Smoking status: Never smoker Second hand tobacco smoke exposure: No Do You Feel Safe in your Home?: Yes Lack of Transportation: No Lack of Food: Never True Current Housing: I Have Housing Concerned About Future Housing: No Difficulty Paying Gas/Electric Bills: No Difficulty Paying for Meds: No Currently Unemployed: No Education: Bachelor's Degree Difficulty w/ Childcare or Family Care: No Spiritual care concerns: No Exam Day of Procedure 09/25/24 06:06 Patient weight: overweight
[2024-09-25] MEDS: OXYTOCIN 30 UNITS/NS 500 ML 30 UNITS/500 ML BAG IV CONT (09:15)
[2024-09-25] MEDS: LACTATED RINGERS 1,000 ML 125 ML IV CONT ×2 (09:15→11:54)
--- NOTE | 2024-09-25 11:14 | P.PNAN_ITS ---
Anes - Initial Pre Proc Eval Date/Time: 09/25/24 11:14 Surgeon: Edmundo Giron MD Pre Op Diagnosis: Contractions Patient Data Age: 29 Gender: F Height: 1.6 m Weight: 80 kg Last Vital Signs Temp 36.4 C 09/25/24 10:15 Pulse 92 09/25/24 11:12 Resp 18 09/25/24 10:15 BP 120/76 09/25/24 11:12 Pulse Ox 100 09/25/24 11:10 O2 Del Method Room Air 09/25/24 06:43 Allergies Allergy/AdvReac Type Severity Reaction Status Date / Time No Known Allergies Allergy Verified 03/05/24 20:41 Home Medications ?Medication ?Instructions ?Recorded ?Confirmed ?Type No Home Medications 03/05/24 03/05/24 History Laboratory Tests 09/25/24 03:50 WBC 9.9 K/mm3 (4.5-10.0) RBC 3.39 L M/mm3 (4.2-5.4) Hgb 10.1 L g/dL (12.0-15.0) Hct 30.2 L % (37.0-47.0) MCV 89.1 fl (80-100) MCH 29.8 pg (26-34) MCHC 33.4 g/dl (32-36) RDW 15.6 H % (11.5-14.5) Plt Count 152 k/mm3 (150-375) MPV 11.4 H fl (7.4-10.4) Immature Gran % (Auto) 0.6 H % (0-0.5) Neut % (Auto) 71.7 % (45.5-73.1) Lymph % (Auto) 21.2 % (18.3-44.2) [place] % (Auto) 5.5 % (2.6-8.5) Eos % (Auto) 0.6 % (0-4.4) Baso % (Auto) 0.4 % (0.2-1.2) Lymph # (Auto) 2.10 K/mm3 (0.9-3.2) [place] # (Auto) 0.5 K/mm3 (0.1-0.6) Eos # (Auto) 0.1 K/mm3 (0-0.3) Baso # (Auto) 0.0 K/mm3 (0.0-0.1) Abs Immat Gran (auto) 0.06 H K/mm3 (0.00-0.031) Absolute Neuts (auto) 7.1 H K/mm3 (1.3-6.7) Absolute Nucleated RBC 0.000 K/mm3 (0.0-0.012) Nucleated RBC % 0.0 % (0.0-0.2) Syphilis IgG/IgM Ab Negative (Negative) Hep Bs Antigen Negative (Negative) HIV 1&2 Ab/P24 Ag 4thGn Negative (Negative) Rubella IgG Antibody 13.8 IU/ML (10 - ) Blood Type O Positive Antibody Screen Negative : gestational age HCG: positive Patient hx anesthesia problems: none Family hx anesthesia problems: none Results Review: All pre-operative results and documents have been reviewed as part of the pre- operative evaluation. [facility] Past Medical History Medical History Overweight (BMI 25.0-29.9) and not yet delivered Nausea and vomiting Social History Social History Smoking status: Never smoker Second hand tobacco smoke exposure: No Do You Feel Safe in your Home?: Yes Lack of Transportation: No Lack of Food: Never True Current Housing: I Have Housing Concerned About Future Housing: No Difficulty Paying Gas/Electric Bills: No Difficulty Paying for Meds: No Currently Unemployed: No Education: Bachelor's Degree Difficulty w/ Childcare or Family Care: No Spiritual care concerns: No Anes - Eval Final PreProcedure Day of Procedure 09/25/24 11:14 Patient weight: overweight Heart: regular rate and rhythm Lungs: clear to auscultation Airway: Mallampati scale class II Neurological: alert and oriented Last oral intake: >/= 8 hours ASA classification: II Emergent: no Anesthetic plan: proceed Anesthesia type and monitoring: regional epidural and standard monitoring Results Review: All pre-operative results and documents have been reviewed as part of the pre- operative evaluation. Informed Consent: The patient's anesthetic plan and its attendant risks and benefits were discussed with the patient/family/POA. Questions were solicited and answers provided to the satisfaction of the patient/family/POA.
--- NOTE | 2024-09-25 14:45 | P.HP_ITS ---
H&P: HPI History of Present Illness Date/Time: 09/25/24 14:45 Chief Complaint: Term Narrative: Patient is a 29-year-old primiparous female at 39 weeks gestation who presented in labor. She was having repetitive heart rate decelerations and then a 5 minute heart rate deceleration. We have agreed to perform delivery for distress. She understands risks, benefits, and alternatives. She has completed informed consent process is ready to proceed. The patient understands the details of the procedure. The procedure has been explained in detail. She understands the risks. She understands that injuries may occur that result in hospitalization, more surgery, and severe illness. She understands risk of hemorrhage and infection. She denies any chest pain or shortness of breath. She denies any nausea, vomiting, fever, chills. Review of Systems Review of Systems: All systems reviewed & are unremarkable except as noted in HPI and below Constitutional: Constitutional: Denies chills, Denies fatigue, Denies fever(s) and Denies weakness Eyes: Eyes: Denies blurry vision, Denies change in vision, Denies loss of peripheral vision, Denies loss of vision, Denies other visual disturbances and Denies eye pain ENT: Denies vertigo, Denies dizziness, Denies hearing loss, Denies mouth pain, Denies nasal obstruction, Denies neck mass and Denies neck pain Cardiovascular: Cardiovascular: Denies chest pain, Denies diaphoresis, Denies syncope, Denies leg edema and Denies dyspnea Respiratory: Respiratory: Denies chest congestion, Denies cough, Denies hemoptysis, Denies dyspnea and Denies wheezing Gastrointestinal: Gastrointestinal: Denies abdominal pain, Denies constipation, Denies diarrhea, Denies nausea and Denies vomiting Genitourinary: Genitourinary: Denies hematuria, Denies change in libido, Denies nocturia, Denies genital lesions, Denies flank pain and Denies urinary urgency Musculoskeletal: Musculoskeletal: Denies abnormal gait, Denies back pain, Denies myalgias, Denies arthralgias, Denies joint swelling, Denies muscle weakness and Denies neck pain Integumentary/Breasts: Skin/Breast: Denies swelling, Denies breast pain, Denies breast mass, Denies dry skin, Denies nipple discharge, Denies unusual bruising and Denies jaundice Neurologic: Denies Neuro-related abnormal movements, Denies Abnormal speech present, Denies abnormal gait, Denies behavioral changes, Denies confusion, Denies vertigo, Denies dizziness, Denies syncope, Denies loss of vision, Denies memory loss, Denies convulsions and Denies weakness Psychiatric: Psychiatric: Denies abnormal sleep pattern, Denies behavioral changes, Denies change in libido, Denies confusion, Denies depression, Denies anhedonia and Denies memory loss Endocrine: Endocrine: Reports no additional endocrine complaints, Denies change in libido and Denies fatigue Hematologic/Lymphatic: Hematologic/Lymphatic: Reports no additional hematologic/lymphatic complaints Allergic/Immunologic: Allergic/Immunologic: Reports no additional allergic /immunologic complaints and Denies wheezing PMFSH Past Medical History Medical History Overweight (BMI 25.0-29.9) and not yet delivered Nausea and vomiting Social History Social History Smoking status: Never smoker Second hand tobacco smoke exposure: No Do You Feel Safe in your Home?: Yes Lack of Transportation: No Lack of Food: Never True Current Housing: I Have Housing Concerned About Future Housing: No Difficulty Paying Gas/Electric Bills: No Difficulty Paying for Meds: No Currently Unemployed: No Education: Bachelor's Degree Difficulty w/ Childcare or Family Care: No Spiritual care concerns: No Meds Home Medications and Allergies Home Medications ?Medication ?Instructions ?Recorded ?Confirmed ?Type No Home Medications 03/05/24 03/05/24 History Allergies Allergy/AdvReac Type Severity Reaction Status Date / Time No Known Allergies Allergy Verified 03/05/24 20:41 Vital Signs Vital Signs - 24 hr 09/24/24 22:39 09/24/24 22:45 09/24/24 23:00 Temperature Pulse Rate 99 95 94 Respiratory Rate Blood Pressure 133/85 125/80 124/78 Pulse Oximetry Oxygen Delivery 09/24/24 23:15 09/24/24 23:30 09/25/24 00:43 Temperature Pulse Rate 92 90 82 Respiratory Rate Blood Pressure 125/79 123/78 119/81 Pulse Oximetry Oxygen Delivery 09/25/24 00:45 09/25/24 01:00 09/25/24 01:15 Temperature Pulse Rate 86 82 90 Respiratory Rate Blood Pressure 125/80 120/78 124/88 Pulse Oximetry Oxygen Delivery 09/25/24 03:08 09/25/24 03:13 09/25/24 03:18 Temperature Pulse Rate Respiratory Rate Blood Pressure Pulse Oximetry 100 98 98 Oxygen Delivery 09/25/24 03:23 09/25/24 03:30 09/25/24 03:35 Temperature Pulse Rate Respiratory Rate Blood Pressure Pulse Oximetry 98 100 98 Oxygen Delivery 09/25/24 03:40 09/25/24 03:45 09/25/24 03:50 Temperature Pulse Rate Respiratory Rate Blood Pressure Pulse Oximetry 96 96 96 Oxygen Delivery 09/25/24 03:55 09/25/24 04:00 09/25/24 04:05 Temperature Pulse Rate Respiratory Rate Blood Pressure Pulse Oximetry 95 97 97 Oxygen Delivery 09/25/24 04:10 09/25/24 04:15 09/25/24 04:20 Temperature Pulse Rate Respiratory Rate Blood Pressure Pulse Oximetry 97 97 97 Oxygen Delivery 09/25/24 04:25 09/25/24 04:30 09/25/24 04:35 Temperature Pulse Rate Respiratory Rate Blood Pressure Pulse Oximetry 97 97 99 Oxygen Delivery 09/25/24 04:40 09/25/24 04:45 09/25/24 04:50 Temperature Pulse Rate Respiratory Rate Blood Pressure Pulse Oximetry 97 97 97 Oxygen Delivery 09/25/24 04:52 09/25/24 04:55 09/25/24 05:00 Temperature Pulse Rate 94 Respiratory Rate Blood Pressure 132/79 Pulse Oximetry 97 97 Oxygen Delivery 09/25/24 05:05 09/25/24 05:10 09/25/24 05:15 Temperature Pulse Rate Respiratory Rate Blood Pressure Pulse Oximetry 98 99 98 Oxygen Delivery 09/25/24 05:20 09/25/24 05:25 09/25/24 05:30 Temperature Pulse Rate Respiratory Rate Blood Pressure Pulse Oximetry 98 100 98 Oxygen Delivery 09/25/24 05:35 09/25/24 05:40 09/25/24 05:45 Temperature Pulse Rate Respiratory Rate Blood Pressure Pulse Oximetry 97 97 97 Oxygen Delivery 09/25/24 05:48 09/25/24 05:53 09/25/24 05:58 Temperature Pulse Rate Respiratory Rate Blood Pressure Pulse Oximetry 97 97 98 Oxygen Delivery 09/25/24 06:03 09/25/24 06:08 09/25/24 06:13 Temperature Pulse Rate Respiratory Rate Blood Pressure Pulse Oximetry 98 99 100 Oxygen Delivery 09/25/24 06:18 09/25/24 06:23 09/25/24 06:28 Temperature Pulse Rate Respiratory Rate Blood Pressure Pulse Oximetry 98 99 99 Oxygen Delivery 09/25/24 06:33 09/25/24 06:38 09/25/24 06:43 Temperature Pulse Rate Respiratory Rate Blood Pressure Pulse Oximetry 99 99 99 Oxygen Delivery 09/25/24 06:43 09/25/24 06:48 09/25/24 06:53 Temperature Pulse Rate Respiratory Rate Blood Pressure Pulse Oximetry 99 100 Oxygen Delivery Room Air 09/25/24 06:58 09/25/24 07:03 09/25/24 07:07 Temperature Pulse Rate 104 H Respiratory Rate Blood Pressure 111/73 Pulse Oximetry 99 99 100 Oxygen Delivery 09/25/24 07:12 09/25/24 07:14 09/25/24 07:22 Temperature Pulse Rate Respiratory Rate Blood Pressure Pulse Oximetry 100 99 100 Oxygen Delivery 09/25/24 07:27 09/25/24 07:32 09/25/24 07:37 Temperature Pulse Rate Respiratory Rate Blood Pressure Pulse Oximetry 99 100 99 Oxygen Delivery 09/25/24 07:43 09/25/24 07:48 09/25/24 07:52 Temperature Pulse Rate Respiratory Rate Blood Pressure Pulse Oximetry 100 100 99 Oxygen Delivery 09/25/24 07:57 09/25/24 08:01 09/25/24 08:06 Temperature Pulse Rate Respiratory Rate Blood Pressure Pulse Oximetry 98 100 99 Oxygen Delivery 09/25/24 08:15 09/25/24 08:18 09/25/24 08:19 Temperature 97.8 F Pulse Rate 95 Respiratory Rate 18 Blood Pressure 131/78 Pulse Oximetry 100 Oxygen Delivery 09/25/24 08:23 09/25/24 08:28 09/25/24 08:33 Temperature Pulse Rate Respiratory Rate Blood Pressure Pulse Oximetry 100 99 99 Oxygen Delivery 09/25/24 08:38 09/25/24 08:43 09/25/24 08:48 Temperature Pulse Rate Respiratory Rate Blood Pressure Pulse Oximetry 99 100 100 Oxygen Delivery 09/25/24 08:53 09/25/24 08:58 09/25/24 09:03 Temperature Pulse Rate Respiratory Rate Blood Pressure Pulse Oximetry 100 100 99 Oxygen Delivery 09/25/24 09:08 09/25/24 09:13 09/25/24 09:18 Temperature Pulse Rate Respiratory Rate Blood Pressure Pulse Oximetry 100 100 100 Oxygen Delivery 09/25/24 09:23 09/25/24 09:28 09/25/24 09:33 Temperature Pulse Rate Respiratory Rate Blood Pressure Pulse Oximetry 100 100 99 Oxygen Delivery 09/25/24 09:38 09/25/24 09:43 09/25/24 09:48 Temperature Pulse Rate Respiratory Rate Blood Pressure Pulse Oximetry 100 100 100 Oxygen Delivery 09/25/24 09:53 09/25/24 10:11 09/25/24 10:15 Temperature 97.6 F Pulse Rate 97 Respiratory Rate 18 Blood Pressure 129/85 Pulse Oximetry 100 Oxygen Delivery 09/25/24 11:00 09/25/24 11:01 09/25/24 11:03 Temperature 98 F Pulse Rate 96 94 Respiratory Rate 18 Blood Pressure 138/88 138/75 Pulse Oximetry 100 Oxygen Delivery 09/25/24 11:05 09/25/24 11:08 09/25/24 11:09 Temperature Pulse Rate 86 98 Respiratory Rate Blood Pressure 118/70 129/78 Pulse Oximetry 100 Oxygen Delivery 09/25/24 11:10 09/25/24 11:12 09/25/24 11:15 Temperature Pulse Rate 92 97 Respiratory Rate Blood Pressure 120/76 131/76 Pulse Oximetry 100 100 Oxygen Delivery 09/25/24 11:18 09/25/24 11:20 09/25/24 11:21 Temperature Pulse Rate 94 88 Respiratory Rate Blood Pressure 124/72 125/71 Pulse Oximetry 98 Oxygen Delivery 09/25/24 11:24 09/25/24 11:25 09/25/24 11:27 Temperature Pulse Rate 96 97 Respiratory Rate Blood Pressure 126/75 123/78 Pulse Oximetry 100 Oxygen Delivery 09/25/24 11:30 09/25/24 11:33 09/25/24 11:35 Temperature Pulse Rate 102 H 101 H Respiratory Rate Blood Pressure 123/82 122/77 Pulse Oximetry 100 100 Oxygen Delivery 09/25/24 11:36 09/25/24 11:39 09/25/24 11:40 Temperature Pulse Rate 100 95 Respiratory Rate Blood Pressure 125/77 131/77 Pulse Oximetry 100 Oxygen Delivery 09/25/24 11:42 09/25/24 11:45 09/25/24 11:48 Temperature Pulse Rate 90 89 95 Respiratory Rate Blood Pressure 130/73 125/81 128/78 Pulse Oximetry 100 Oxygen Delivery 09/25/24 11:50 09/25/24 11:51 09/25/24 11:54 Temperature Pulse Rate 91 89 Respiratory Rate Blood Pressure 121/77 127/72 Pulse Oximetry 99 Oxygen Delivery 09/25/24 11:55 09/25/24 11:57 09/25/24 11:58 Temperature Pulse Rate 92 Respiratory Rate Blood Pressure 123/75 Pulse Oximetry 100 100 Oxygen Delivery 09/25/24 12:00 09/25/24 12:03 09/25/24 12:08 Temperature Pulse Rate 93 90 Respiratory Rate Blood Pressure 122/75 127/72 Pulse Oximetry 100 100 Oxygen Delivery 09/25/24 12:13 09/25/24 12:18 09/25/24 12:23 Temperature Pulse Rate Respiratory Rate Blood Pressure Pulse Oximetry 100 99 100 Oxygen Delivery 09/25/24 12:28 09/25/24 12:30 09/25/24 12:33 Temperature Pulse Rate 94 Respiratory Rate Blood Pressure 125/86 Pulse Oximetry 99 100 Oxygen Delivery 09/25/24 12:38 09/25/24 12:43 09/25/24 12:48 Temperature Pulse Rate Respiratory Rate Blood Pressure Pulse Oximetry 99 99 99 Oxygen Delivery 09/25/24 12:53 09/25/24 12:58 09/25/24 13:00 Temperature Pulse Rate 87 Respiratory Rate Blood Pressure 135/77 Pulse Oximetry 99 99 Oxygen Delivery 09/25/24 13:03 09/25/24 13:08 09/25/24 13:13 Temperature Pulse Rate Respiratory Rate Blood Pressure Pulse Oximetry 99 100 100 Oxygen Delivery 09/25/24 13:18 09/25/24 13:23 09/25/24 13:28 Temperature Pulse Rate Respiratory Rate Blood Pressure Pulse Oximetry 100 100 100 Oxygen Delivery 09/25/24 13:30 09/25/24 13:33 09/25/24 13:38 Temperature Pulse Rate 84 Respiratory Rate Blood Pressure 121/67 Pulse Oximetry 99 99 Oxygen Delivery 09/25/24 13:43 09/25/24 13:48 09/25/24 13:53 Temperature Pulse Rate Respiratory Rate Blood Pressure Pulse Oximetry 100 100 99 Oxygen Delivery 09/25/24 13:58 09/25/24 14:00 09/25/24 14:03 Temperature 97.5 F L Pulse Rate 87 Respiratory Rate 18 Blood Pressure 121/64 Pulse Oximetry 99 99 Oxygen Delivery 09/25/24 14:08 09/25/24 14:13 09/25/24 14:18 Temperature Pulse Rate Respiratory Rate Blood Pressure Pulse Oximetry 100 99 100 Oxygen Delivery 09/25/24 14:23 09/25/24 14:28 09/25/24 14:30 Temperature Pulse Rate 83 Respiratory Rate Blood Pressure 120/68 Pulse Oximetry 100 100 Oxygen Delivery 09/25/24 14:33 09/25/24 14:38 09/25/24 14:43 Temperature Pulse Rate Respiratory Rate Blood Pressure Pulse Oximetry 100 100 100 Oxygen Delivery Exam Const: General: cooperative, healthy appearing, comfortable and no acute distress Orientation/consciousness: oriented to person, oriented to place and oriented to time HENMT: Head: normal to inspection Ears: external ears normal Face/Nose/Sinus: Normal external nose present and normal facial exam Face and sinus: normal facial exam Eyes: General: appearance normal, both eyes and all related structures Neck: Neck: normal visual inspection, trachea midline and supple Resp: Auscultation: clear to auscultation bilaterally, no crackles, no rales, no rhonchi and no wheezes Cardio: Rate: regular rate Rhythm: regular rhythm Heart sounds: no click, no murmurs and no rubs GI: GI Palp: No abdominal tenderness, No Soft to palpation, No Tenderness to palpation present (GI) and No Palpable mass present Auscultation: normal bowel sounds Skin: General skin exam: normal color and no rashes or lesions noted Neuro: General: oriented to person, oriented to place and oriented to time Extrem: General: normal to inspection, no joint enlargement, no clubbing, cyanosis or edema, no pedal edema and no calf tenderness Psych: Appearance: grossly normal Mental Status: mental status grossly normal Speech and movement: Normal speech and movement present H&P: Results Labs Labs: Short CBC 09/25/24 Range/Units 03:50 WBC 9.9 (4.5-10.0) K/mm3 Hgb 10.1 L (12.0-15.0) g/dL Hct 30.2 L (37.0-47.0) % Plt Count 152 (150-375) k/mm3 Assessment and Plan Assessment and plan (1) intolerance to labor, delivered, current hospitalization: Code(s): O77.9 - Labor and delivery complicated by stress, unspecified Status: Acute Plan Patient is a 29-year-old primiparous female at 39 weeks gestation who presented in labor. She was having repetitive heart rate decelerations and then a 5 minute heart rate deceleration. We have agreed to perform delivery for distress. She understands risks, benefits, and alternatives. She has completed informed consent process is ready to proceed.
--- NOTE | 2024-09-25 14:49 | WPDHPUPDATE1 ---
History and Physical Update Update Date/Time: 09/25/24 14:49 History and Physical has been reviewed, including an updated exam of the patient. There are NO changes in the patient's condition. Risks, benefits, and alternatives have been discussed and questions answered. Patient agrees to proceed with procedure.
--- NOTE | 2024-09-25 15:44 | W.PM.OBCSD ---
OB - Delivery Note Procedure Delivery date: 09/25/24 Pre-op diagnosis: Non-Reassuring Status Post-op Diagnosis: Same Procedure Performed: Primary Surgeon: Edmundo Giron MD Anesthesia type: Epidural Description of Procedure/Findings: The patient was taken the operating room.? She was prepped and draped in dorsal supine position with a leftward tilt.? This was done after spinal anesthetic was applied.? A low-transverse skin incision was made and carried down till of the fascia with the knife.? The fascial incision was made with the knife.? The fascial incision was extended laterally with Groves scissors.? The fascia was tented upward superiorly and inferiorly the rectus muscles were dissected off bluntly.? The rectus muscles were the midline.? The preperitoneal fat and peritoneum were dissected open bluntly at the superior aspect of the rectus muscles.? The peritoneal incision was extended superior and inferior with good position of bladder.? The uterine incision was made with a scalpel down to the level of the amniotic cavity.? The amniotic cavity was entered bluntly.? The infant was delivered.? The cord was clamped and cut and the infant was handed off to waiting pediatric staff.? Cord bloods were obtained.? The placenta was removed manually.? The uterus was exteriorized.? The uterus was cleared of all clots, debris and membranes.? The uterus was closed in 0 Vicryl running lock fashion.? An imbricating over a was placed along the incision line as well.? The uterus was returned to the abdomen.? The gutters were cleared of all clots and debris.? The fascia was closed with 0 Vicryl running fashion.? The subcutaneous tissue was irrigated pinpoint bleeders were cauterized.? The skin was closed with subcuticular absorbable zakia.? The skin incision line was covered with glue.? The patient tolerated the procedure well.? She has taken recovery room in stable condition.? Sponge lap and needle counts were correct x2.? Estimated Blood Loss: 350 Complications: No immediate complications
--- NOTE | 2024-09-25 18:13 | SUR.PHASEI ---
OR NOTE- heart tones in OR [id number] [id number]
[2024-09-25] MEDS: SIMETHICONE 80 MG TAB.CHEW PO (19:18)
[2024-09-25] MEDS: DOCUSATE SODIUM 100 MG CAPSULE PO (19:18)
[2024-09-25] MEDS: POLYSACCHARIDE IRON COMPLEX 150 MG CAPSULE PO (19:18)
[2024-09-25] MEDS: KETOROLAC 15 MG/ML VIAL (*BKC) IV PUSH (19:19)
[2024-09-25] MEDS: ACETAMINOPHEN 325 MG TABLET 650 MG PO (19:19)
[2024-09-25] MEDS: DEXTROSE 5%/0.45% SOD CHL 1,000 ML 125 ML IV CONT (21:14)
[2024-09-26] VITALS (16 sets, daily range): BP systolic 110–188; BP diastolic 66–82; PULSE 93–112; RESP 12–20; TEMP 36.4–37.1; O2SAT 97–100
[2024-09-26] MEDS: KETOROLAC 15 MG/ML VIAL (*BKC) IV PUSH ×3 (01:32→13:59)
[2024-09-26] MEDS: ACETAMINOPHEN 325 MG TABLET 650 MG PO ×4 (01:32→19:34)
[2024-09-26] MEDS: LIDOCAINE 5% PATCH 1 PATCH TRANSDERM (04:21)
[2024-09-26 05:50] LABS: Basophils Percent Auto 0.2 % (0.2-1.2); Eosinophils Percent Auto 0.2 % (0-4.4); Hematocrit 24.3 % (37.0-47.0); Hemoglobin 7.6 g/dL (12.0-15.0); Immature Granulocyte Absolute 0.06 K/mm3 (0.00-0.031); Immature Granulocyte Percent A 0.6 % (0-0.5); Lymphocytes Absolute Auto 0.86 K/mm3 (0.9-3.2); Lymphocytes Percent Auto 8.2 % (18.3-44.2); Mean Corpuscular HGB Conc 31.3 g/dl (32-36); Mean Corpuscular Hemoglobin 29.5 pg (26-34); Mean Corpuscular Volume 94.2 fl (80-100); Mean Platelet Volume 12.1 fl (7.4-10.4); Monocytes Absolute Auto 0.4 K/mm3 (0.1-0.6); Monocytes Percent Auto 4.1 % (2.6-8.5); Neutrophils Absolute Auto 9.1 K/mm3 (1.3-6.7); Neutrophils Percent Auto 86.7 % (45.5-73.1); Platelet Count Result 125 k/mm3 (150-375); Red Blood Count 2.58 M/mm3 (4.2-5.4); Red Cell Distribution Width 16.1 % (11.5-14.5); White Blood Count 10.5 K/mm3 (4.5-10.0)
--- NOTE | 2024-09-26 07:00 | PM.OBPNVD ---
OB - PN: Subj Subjective Date/time seen: 09/26/24 07:00 Patient comments: no complaints, pain well controlled, tolerating diet and flatus present OB - PN: Obj Data Labs 09/26/24 04:17 Labs: Laboratory Results - last 24 hr 09/26/24 04:17 WBC 10.5 H RBC 2.58 L Hgb 7.6 L Hct 24.3 L MCV 94.2 D MCH 29.5 MCHC 31.3 L RDW 16.1 H Plt Count 125 L MPV 12.1 H Immature Gran % (Auto) 0.6 H Neut % (Auto) 86.7 H Lymph % (Auto) 8.2 L [place] % (Auto) 4.1 Eos % (Auto) 0.2 Baso % (Auto) 0.2 Lymph # (Auto) 0.86 L [place] # (Auto) 0.4 Eos # (Auto) 0.0 Baso # (Auto) 0.0 Abs Immat Gran (auto) 0.06 H Absolute Neuts (auto) 9.1 H Absolute Nucleated RBC 0.000 Nucleated RBC % 0.0 OB - PN A/P Plan day: 1 Comments: Post Op LTCS - no problems, routine recovery Time Spent With Patient Time: Total time spent is greater than 50% in coordination of care (as documented) at patient's floor/unit and/or counseling patient: Exam Const: General: cooperative, healthy appearing, comfortable and no acute distress Resp: Auscultation: no crackles, no rales, no rhonchi and no wheezes Cardio: Rhythm: regular rhythm Heart sounds: no click and no murmurs GI: Inspection: non-distended Auscultation: normal bowel sounds Extrem: General: normal to inspection, no pedal edema and no calf tenderness
[2024-09-26] MEDS: MULTIVIT/MIN/PREN/FOL AC/IRON TABLET 1 TAB PO (08:05)
[2024-09-26] MEDS: POLYSACCHARIDE IRON COMPLEX 150 MG CAPSULE PO ×2 (08:05→16:21)
[2024-09-26] MEDS: DOCUSATE SODIUM 100 MG CAPSULE PO ×2 (08:06→16:21)
[2024-09-26] MEDS: SIMETHICONE 80 MG TAB.CHEW PO ×3 (08:06→16:21)
--- NOTE | 2024-09-26 09:55 | PC.NURSE ---
0900- Introductions were made, then consulted with patient to assess needs related to . Discussed with mother her?plans to feed?her and the?experience so far. Mother has questions about milk production and volume, as well as leaking from one breast and not the other. We discussed normal progression of in the early period. Patient is encouraged to offer the breast at any time infant shows cues. Parents are considering a pacifier so we discussed the pros/cons and that it should never be used to hold off feedings. Resources provided for inpatient and outpatient services with the feeding sheet, mom/baby guide and name written on the communication board. Mother voiced understanding of information and will call if there is a request for assistance. Reported to the Primary RN. 0949- Patient called out for feeding assistance. Baby is very sleepy. We stimulated him and changed positions to try to awaken him. He did stir and give several latching attempts with some suckling. He would then fall asleep and release the nipple. Mom is educated on infant sleep states and that it is typical for infants to be sleepy in the first day of life. Mom is encouraged to watch for feeding cues and offer the breast anytime desires. This few minute feeding is acceptable at this time and no further intervention is needed. RN updated.
--- NOTE | 2024-09-26 14:32 | WPDANLDPN2 ---
Anes-Prog Note L&D Date/Time: 09/26/24 14:32 Comfortable throughout: labor and section Neuraxial method: epidural Epidural/Spinal procedure site: clean & non-tender Neuro status: Neuro function grossly intact. Cardiovascular status: normal Respiratory status: normal Airway patency: baseline Mental status: baseline Post-Op hydration status: normal (catheter in place, patient symptomatic with standing. blood was ordered by surgeon) Vital Signs: Last Vital Signs Temp 36.4 C L 09/26/24 11:53 Pulse 103 H 09/26/24 11:53 Resp 16 09/26/24 11:53 BP 110/66 09/26/24 11:53 Pulse Ox 99 09/26/24 11:53 O2 Del Method Room Air 09/26/24 11:45 Pain score (VAS): 3 I/O: Intake & Output 09/25/24 09/26/24 09/26/24 23:59 07:59 15:59 Intake Total 500 500 240 Output Total 850 1350 Balance 500 -350 -1110 Post-procedural complaints: none Patient feedback: Patient satisfied with anesthetic care.
--- NOTE | 2024-09-26 14:33 | WPDANLDNPN2 ---
Anes-Prog Note L&D-Neuraxial Date/Time: 09/26/24 14:33 Neuraxial medications: epidural PF morphine Opiod-related complaints: none Patient feedback: Patient satisfied with post-operative pain management.
[2024-09-26] MEDS: SODIUM CHLORIDE 0.9% IV 250 ML 30 ML IV CONT (15:20)
[2024-09-26] MEDS: TUBING, BLOOD PLUM PUMP TUBING 1 EACH XX (16:27)
[2024-09-26] MEDS: IBUPROFEN 600 MG TABLET PO (19:34)
[2024-09-26] MEDS: HYDROcodone/acetaminophen (*CRX) 5-325 MG TABLET 1 TAB PO (23:30)
[2024-09-27] MEDS: ACETAMINOPHEN 325 MG TABLET 650 MG PO ×4 (02:59→22:45)
[2024-09-27] MEDS: IBUPROFEN 600 MG TABLET PO ×4 (02:59→22:45)
[2024-09-27 04:25] VITALS: BP 113/79; PULSE 96; RESP 16; TEMP 36.8; O2SAT 100
[2024-09-27] MEDS: LIDOCAINE 5% PATCH 1 PATCH TRANSDERM (04:37)
[2024-09-27 05:04] LABS: Hematocrit 29.9 % (37.0-47.0); Hemoglobin 9.1 g/dL (12.0-15.0)
[2024-09-27 08:25] VITALS: BP 113/70; PULSE 104; RESP 16; TEMP 36.3; O2SAT 97
--- NOTE | 2024-09-27 08:42 | P.PNOB_ITS ---
OB - PN: Subj Subjective Date/time seen: 09/27/24 08:42 Interval history: pp day 2 doing well s/p blood infusion considering d/c home OB - PN: Obj Data Labs 09/27/24 04:18 Labs: Laboratory Results - last 24 hr 09/25/24 09/27/24 03:50 04:18 Hgb 9.1 L Hct 29.9 L Blood Type O Positive Antibody Screen Negative Crossmatch See Detail OB - PN A/P Plan day: 2 Plan: routine care and discharge home Time Spent With Patient Time: Total time spent is greater than 50% in coordination of care (as documented) at patient's floor/unit and/or counseling patient: Review of Systems 2 Review of Systems: All systems reviewed & are unremarkable except as noted in HPI and below Exam 2 Const: General: cooperative Neck: Neck: normal visual inspection Resp: Effort & Inspection: normal respiratory effort Cardio: Rate: regular rate GI: Other: incision cdi
[2024-09-27] MEDS: SIMETHICONE 80 MG TAB.CHEW PO ×2 (09:03→15:35)
[2024-09-27] MEDS: MULTIVIT/MIN/PREN/FOL AC/IRON TABLET 1 TAB PO (09:03)
[2024-09-27] MEDS: POLYSACCHARIDE IRON COMPLEX 150 MG CAPSULE PO ×2 (09:03→16:21)
[2024-09-27] MEDS: DOCUSATE SODIUM 100 MG CAPSULE PO ×2 (09:03→16:21)
[2024-09-27] MEDS: HYDROcodone/acetaminophen (*CRX) 5-325 MG TABLET 1 TAB PO ×3 (10:45→20:34)
--- NOTE | 2024-09-27 15:21 | PC.NURSE ---
1140 Introductions were made, then consulted with patient to assess needs related to . Mother led the conversation with her?plans to feed?her and the?experience so far. Per mother, fed well over night. Encouraged understanding of the benefits of skin to skin (demonstrating unwrapping infant and placing upright on her chest), stimulating with massage touch, changing positions to encourage wakefulness, how to watch for early feeding cues, responsive feeding, feeding on demand (aiming for 8-12 times in 24 hours, about every 2-3 hours), milk production, building/maintaining a milk supply, duration of feeding, signs of adequate intake/output and how to record on the feeding sheet. Mother works well with her infant with encouragement and education. Reviewed positioning and ear, shoulder, hip alignment, supporting the breast to facilitate a deep latch, asymmetrical latch (off-center), leading with the chin with a big, open, wide gape and body close to mother. latched optimally to the [right] breast in [cradle] position. Education given to the mother of how to visualize the suckling (with good rocking jaw motion), swallows (dropping of the lower jaw) and how to listen for drinking at the breast (the ka sound). was [able] to maintain latch without pain to mother protecting the nipple with optimal positioning and latching, when was done with feeding mother's nipple was shaped like a lipstick tube , no pain but CLC advised mother that baby needed to work on getting a deeper latch and there should be no misshaping. Reviewed comfort measures of healing with a warm, wet washcloth to rinse breast, then leave open to air-dry, good handwashing when or touching the breast/nipples to prevent infection. Mother voiced understanding of skin to skin, stimulating with massage touch, responsive feedings, hand expressed colostrum, talking to infant to encourage if it has been 2 -2.5 hours since the start of the last , to call if infant does not latch, or if there is discomfort with . Resources used for education were facilitated with the [visual educational handouts/ tool/mom and baby guide], Inpatient/outpatient resources provided with business card, feeding sheet, name written on the communication board, and the mom/baby guide. Parents voiced understanding of information, demonstrated learning and will call if there is a request for assistance. Reported to the Primary RN. 1435 CLC in room, mother's primary RN assisted her with latch onto her left breast in a cradle position. Per mother no pain felt and she feels like baby is tugging and pulling at the nipple. Mother knows to look at her nipple when the feeding is complete and let CLC or Primary RN know if she sees any misshaping.
[2024-09-27 20:00] VITALS: BP 143/92; PULSE 108; RESP 20; TEMP 36.3; O2SAT 100
[2024-09-28] MEDS: HYDROcodone/acetaminophen (*CRX) 5-325 MG TABLET 1 TAB PO ×5 (00:48→19:49)
--- NOTE | 2024-09-28 04:15 | P.PNOB_ITS ---
OB - PN: Subj Subjective Date/time seen: 09/28/24 04:15 Interval history: pp day 3 doing well s/p blood infusion d/c home OB - PN: Obj Data Labs 09/27/24 04:18 Labs: Laboratory Results - last 24 hr 09/27/24 04:18 Hgb 9.1 L Hct 29.9 L OB - PN A/P Plan day: 3 Plan: routine care and discharge home Time Spent With Patient Time: Total time spent is greater than 50% in coordination of care (as documented) at patient's floor/unit and/or counseling patient: Review of Systems 2 Review of Systems: All systems reviewed & are unremarkable except as noted in HPI and below Exam 2 Const: General: cooperative, healthy appearing and comfortable Chest: Chest palpation & inspection: normal inspection of the chest GI: Other: incision CDI
--- NOTE | 2024-09-28 04:16 | PM.OBDSVD ---
DS: Admitting Diagnosis Discharge Date 09/28/24 Admitting Diagnosis labor DS: Discharge Diagnosis Discharge Diagnosis (1) delivery delivered: Code(s): O82 - Encounter for delivery without indication Status: Acute OB - DS: Summary OB Procedures : None OB Procedures Intrapartum: OB Procedures: : None Peripartum Data Procedures: Procedures Operation Date: 09/25/24 15:00 Actual Procedure Side Surgeon p Section Bilateral Edmundo Giron MD Time Spent with Patient Time attestation: Total time spent providing and/or coordinating discharge services: DS: Data Data Completed and Pending Labs on day of discharge: Labs from last 24 hours 09/27/24 04:18 Hgb 9.1 L Hct 29.9 L Discharge Plan Discharge Attending physician on discharge: Edmundo Giron Discharging Clinician: Loreto Cruz Patient Disposition: Home Activity: pelvic rest Diet: regular Patient Instructions: Antibiotic Form Patient Language: Sinhala Stand Alone Forms: General Discharge Information Follow-up/Referrals: Edmundo Giron MD [Physician] - 1 Week Discharge Medications: New hydrocodone-acetaminophen 5-325 mg Tablet 1 tablet PO Q3H PRN (Reason: Breakthrough Pain Rated 4-6) Qty: 25 0RF No Action No Home Medications Date of admission: 09/25/24 03:38 Primary Care Provider: UNKNOWN,DOCTOR Admitting Provider: Edmundo Giron Attending physician on admission: Edmundo Giron Condition: Stable
[2024-09-28] MEDS: ACETAMINOPHEN 325 MG TABLET 650 MG PO ×4 (05:15→23:30)
[2024-09-28] MEDS: IBUPROFEN 600 MG TABLET PO ×4 (05:15→23:30)
[2024-09-28] MEDS: MULTIVIT/MIN/PREN/FOL AC/IRON TABLET 1 TAB PO (08:36)
[2024-09-28] MEDS: DOCUSATE SODIUM 100 MG CAPSULE PO ×2 (08:36→17:16)
[2024-09-28] MEDS: POLYSACCHARIDE IRON COMPLEX 150 MG CAPSULE PO ×2 (08:36→17:16)
[2024-09-28] MEDS: SIMETHICONE 80 MG TAB.CHEW PO ×3 (08:36→17:16)
[2024-09-28 08:45] VITALS: BP 121/75; PULSE 59; RESP 16; TEMP 36.5; O2SAT 100
--- NOTE | 2024-09-28 12:43 | PC.NURSE ---
1050 Mother called out for some questions, baby just returned to the floor from [facility]. She was told to supplement after the baby breast feeds as much as baby will take due to weight loss. Last feeding at 0900, the baby took 32 mls of Enfamil. Advised mother to watch fro feeding cues, baby should eat next around 12-1230, call when baby is ready to go to breast and I will show parents how to bottle feed. 1225 Mother called out and baby was ready to feed at the breast. Reviewed signs of adequate intake encouraging swallowing at the breast and positioning. Infant latched optimally to the [left] breast in [cross cradle] position. Education given to the mother of how to visualize the suckling (with good rocking jaw motion) swallows (dropping of the lower jaw) and how to listen for drinking at the breast (the ka sound). The infant was [able] to maintain latch without discomfort to mother. Nipple care reviewed with optimal latch, good positioning and using clean hands when touching her breast. Mother and father shown how to pace bottle feed, advised to feed 10-15mls, burp and then continue bottle feed, last feeding baby took 32 mls so aim for that amount. Mother voiced understanding of the education shared, to call for assistance if the infant does not latch or if there is discomfort with or bottle feeding. Reported to the Primary RN.
[2024-09-28 20:00] VITALS: BP 111/89; PULSE 94; RESP 20; TEMP 36.9; O2SAT 99
[2024-09-29] MEDS: HYDROcodone/acetaminophen (*CRX) 5-325 MG TABLET 1 TAB PO ×2 (00:30→07:34)
[2024-09-29] MEDS: IBUPROFEN 600 MG TABLET PO ×2 (05:30→11:21)
[2024-09-29] MEDS: ACETAMINOPHEN 325 MG TABLET 650 MG PO ×2 (05:30→11:22)
--- NOTE | 2024-09-29 07:15 | PC.NURSE ---
Patient has baby latched to the right breast in cradle hold. Baby is suckling sleepily and mom declines pain. Parents have a lot of questions regarding supplementation. We reviewed that baby should guide the feedings with attention to his hunger and satiety cues. Mom's breasts feel full today and she is instructed on pumping to comfort as needed after feedings. She is advised that if baby is having appropriate output as well as frequent (at least 8x/24 hours) effective feedings (with swallowing noted), then supplementation may not be necessary. Patient will discuss feedings with the regional dedicated truck driver today and we will review the feeding plan for discharge after they speak. RN updated.
--- NOTE | 2024-09-29 07:33 | P.PNOB_ITS ---
OB - PN: Subj Subjective Date/time seen: 09/29/24 07:33 Interval history: pp day 4 doing well s/p blood infusion d/c home OB - PN: Obj Data Labs 09/27/24 04:18 OB - PN A/P Plan day: 4 Plan: routine care and discharge home Time Spent With Patient Time: Total time spent is greater than 50% in coordination of care (as documented) at patient's floor/unit and/or counseling patient: Exam 2 Const: General: cooperative, healthy appearing and comfortable Chest: Chest palpation & inspection: normal inspection of the chest Resp: Effort & Inspection: normal respiratory effort Cardio: Rate: regular rate
[2024-09-29] MEDS: MULTIVIT/MIN/PREN/FOL AC/IRON TABLET 1 TAB PO (07:35)
[2024-09-29] MEDS: POLYSACCHARIDE IRON COMPLEX 150 MG CAPSULE PO (07:35)
[2024-09-29] MEDS: DOCUSATE SODIUM 100 MG CAPSULE PO (07:35)
[2024-09-29] MEDS: SIMETHICONE 80 MG TAB.CHEW PO ×2 (07:35→11:21)
[2024-09-29 07:40] VITALS: BP 113/80; PULSE 90; RESP 18; TEMP 36.5; O2SAT 90
--- NOTE | 2024-09-29 11:30 | PC.NURSE ---
Consulted with mother concerning needs and she shared her ability to independently latch infant optimally without pain. Mother is feeding appropriately for growth of infant and understands stimulating to eat if needed. Per the clinical social work therapist, as long as baby is effectively and having good output, parents don't have to supplement after each . Education provided on infant satiety and signs that baby may need a top off. Advised supplementation as needed or if desired. has had appropriate feedings in the last 24 hours meets the outcomes for weight, output, blood sugar and jaundice at this time. Reinforced understanding of milk production, transition of milk, signs of adequate intake, transition of stool, prevention/relief of engorgement, plugged ducts, mastitis, responsive watching for feeding cues, community resources, and when to call a provider using the resource of the feeding sheet along with the mom and baby guide. She has a [employer]if breast pump for home use and we measured her (18-19mm) for flange fit (recommend 24mm). Mother voiced understanding of the information shared, is confident to continue effectively her infant at home, when to call for assistance, denies any additional assistance or education at this time. Reported to the Primary RN.
[2024-09-29] MEDS: HYDROcodone/acetaminophen (*CRX) 10-325 MG TABLET 1 TAB PO (12:53)
[2024-09-30 09:35] VITALS: BP 127/90; PULSE 91; RESP 18; TEMP 36.9; O2SAT 100
== END 2024-09-29 14:10 | disposition home or self-care (01) | DRG 540 ==
LOC: ANHLDR 09-25 03:38 → ANHOB2 09-25 18:58
PROVIDERS: Admitting Provider Obstetrics & Gynecology; Visit Provider Obstetrics & Gynecology
PROC: 10D00Z1 Extraction of Products of Conception, Low, Open Approach (ICD-10-PCS; CPT 59514; principal; 2024-09-25 15:00)
DX: O36.8330 Maternal care for abnormalities of the fetal heart rate or rhythm, third trimester, not applicable or unspecified (principal); Z37.0 Single live birth; Z3A.39 39 weeks gestation of pregnancy
CPT/HCPCS: 36415; 36430; 85014; 85018; 85025; 86593; 86703; 86762; 86850; 86900; 86901; 86923; 87340; A9270; G0378; G0379; G0432; J1200; J1885; J2003; J2274; J2590; J2795; J7050; J7120; P9016